=== PATIENT | female | born 1975 | race Caucasian/White ===

== ENCOUNTER 2023-09-22 02:53 | Inpatient (IN) | payer BC ==
[2023-09-22 04:27] LABS: #Eosinphils 0.1 thou/uL (0.0-0.7); #Monocytes 0.5 thou/uL (0.11-0.59); #Neutrophils 10.8 thou/uL (1.40-6.50); %Basophils 0.2 % (0.0-1.0); %Eosinophils 0.9 % (0.0-10.0); %Lymphocytes 4.4 % (21.0-51.0); %Monocytes 4.5 % (0.0-10.0); %Neutrophils 89.6 % (42.0-75.0); Hematocrit 38.2 % (36.0-47.0); Hemoglobin 12.9 g/dL (12.0-16.0); Mean Corpuscular HGB CONC 33.8 g/dL (32.0-36.0); Mean Corpuscular Hemoglobin 30.3 pg (27.0-31.0); Mean Corpuscular Volume 89.7 fl (78.0-98.0); Mean Platelet Volume 10.4 fL (7.4-10.4); Platelet Count 208 10x3/uL (130-400); RBC Distribution Width 11.4 % (11.5-14.5); Red Blood Cell (RBC) Count 4.26 mill/uL (4.20-5.40); White Blood Cell (WBC) Count 12.1 10x3/uL (4.8-10.8)
[2023-09-22 04:34] LABS: BHCG - Serum Negative (NEGATIVE); Pregs Control Background? CLEAR/WHITE (CLR/WHITE); Pregs Control Bar Appear? YES (CONTROL BAR)
[2023-09-22 04:51] LABS: Bacteria/HPF 2+ HPF (None Seen); Bilirubin 1+ (Negative); Blood, Urine Trace (Negative); CAUTI Indications for Culture Pelvic or flank pain; Clarity Turbid (Clear); Glucose, Urine (Dipstick) Normal (Negative); Ketone, Urine Negative (Negative); Leukocyte 500 Leu/uL (Negative); Mucous/LPF 1+ LPF (<2+); Nitrite 2+ (Negative); Protein, Urine (Dipstick) 30 mg/dL (Neg-Trace); Squamous Epithelial None Seen HPF (0-3); Urine Culture Reflex Yes Yes; WBC/HPF Greater than 50 HPF (0-3)
[2023-09-22 04:52] LABS: ALT (SGPT) 13 U/L (8-55); AST (SGOT) 15 U/L (5-34); Albumin 3.7 g/dL (3.5-5.0); Alkaline Phosphatase 42 U/L (40-110); Anion Gap 10 mmol/L (10-20); BUN (Urea Nitrogen) 10 mg/dL (7.0-18.7); Bilirubin, Total 0.8 mg/dL (0.2-1.2); Calc. Creatinine Clearance 0 mL/min (70-130); Calcium 8.3 mg/dL (7.8-10.44); Carbon Dioxide 25 mmol/L (22-29); Chloride 101 mmol/L (98-107); Estimated GFR 82; Glucose 90 mg/dL (70-105); Potassium 3.5 mmol/L (3.5-5.1); Protein, Total 5.7 g/dL (6.0-8.3); Sodium 132 mmol/L (136-145)
[2023-09-22 04:57] LABS: Troponin I Less than 0.010 ng/mL (< 0.028)
[2023-09-22] MEDS ORDERED: cefTRIAXone (ROCEPHIN) 2 GM VIAL ONE (05:36)
[2023-09-22] MEDS ORDERED: Sodium Chloride 0.9% 100 ML ONE (05:36)
[2023-09-22] MEDS ORDERED: Acetaminophen 500 MG TAB ONE (06:59)
[2023-09-22] MEDS ORDERED: Ondansetron PF 4 MG/2 ML Vial ONE (07:00)
[2023-09-22] MEDS ORDERED: Ketorolac Tromethamine 30 MG/ML VIAL ONE (07:00)
[2023-09-22] MEDS ORDERED: Acetaminophen 650 MG Suppository PR PRN (08:32)
[2023-09-22] MEDS ORDERED: Ondansetron PF 4 MG/2 ML Vial IVP PRN (08:32)
[2023-09-22] MEDS ORDERED: Ondansetron ODT 4 MG TAB PO PRN (08:32)
[2023-09-22 09:48] VITALS: BMI 24.7
[2023-09-22] MEDS ORDERED: Ketorolac Tromethamine 10 MG TAB PO SCH (10:30)
[2023-09-22] MEDS: Sodium Chloride 0.9% 1,000 ML IV SCH ×2 (11:13→18:42)
[2023-09-22] MEDS: Acetaminophen 325 MG TAB PO PRN (18:42)
[2023-09-22] MEDS ORDERED: Melatonin 3 MG TAB PO SCH (21:00)
[2023-09-22] MEDS: Hydroxychloroquine Sulfate 200 MG TAB PO SCH (21:00)
[2023-09-23] MEDS: Sodium Chloride 0.9% 1,000 ML IV SCH ×3 (01:42→17:52)
[2023-09-23] MEDS: Acetaminophen 325 MG TAB PO PRN ×2 (02:51→09:01)
[2023-09-23] MEDS ORDERED: Ketorolac Tromethamine 30 MG/ML VIAL IVP PRN (02:55)
[2023-09-23] MEDS: ALPRAZolam 0.25 MG TAB PO PRN (02:57)
[2023-09-23] MEDS ORDERED: Phenazopyridine HCl 100 MG TAB PO SCH (03:00)
[2023-09-23] MEDS: Levothyroxine Sodium 125 MCG TAB PO SCH (05:16)
[2023-09-23] MEDS: cefTRIAXone\\ROCEPHIN 1 GM in Sodium Chloride 0.9% 100 ML IVPB SCH (05:16)
[2023-09-23 06:36] LABS: #Eosinphils 0.3 thou/uL (0.0-0.7); #Monocytes 0.3 thou/uL (0.11-0.59); #Neutrophils 3.3 thou/uL (1.40-6.50); %Basophils 0.4 % (0.0-1.0); %Eosinophils 5.4 % (0.0-10.0); %Lymphocytes 24.2 % (21.0-51.0); %Monocytes 6.4 % (0.0-10.0); %Neutrophils 63.2 % (42.0-75.0); Hemoglobin 11.4 g/dL (12.0-16.0); Mean Corpuscular HGB CONC 33.5 g/dL (32.0-36.0); Mean Corpuscular Hemoglobin 30.8 pg (27.0-31.0); Mean Corpuscular Volume 91.9 fl (78.0-98.0); Mean Platelet Volume 10.3 fL (7.4-10.4); Platelet Count 213 10x3/uL (130-400); RBC Distribution Width 11.6 % (11.5-14.5); White Blood Cell (WBC) Count 5.2 10x3/uL (4.8-10.8)
[2023-09-23 06:56] LABS: Anion Gap 9 mmol/L (10-20); BUN (Urea Nitrogen) 6 mg/dL (7.0-18.7); Calc. Creatinine Clearance 110 mL/min (70-130); Calcium 7.9 mg/dL (7.8-10.44); Carbon Dioxide 25 mmol/L (22-29); Chloride 109 mmol/L (98-107); Estimated GFR 94; Glucose 79 mg/dL (70-105); Potassium 4.3 mmol/L (3.5-5.1); Sodium 139 mmol/L (136-145)
[2023-09-23] MEDS: Phenazopyridine HCl 100 MG TAB PO SCH ×3 (08:54→17:51)
[2023-09-23] MEDS: BuPROPion XL 150 MG ER.TAB PO SCH (08:54)
[2023-09-23] MEDS: Hydroxychloroquine Sulfate 200 MG TAB PO SCH ×2 (09:01→20:04)
[2023-09-23] MEDS ORDERED: Aspirin/APAP/Caffeine Tab (Excedrin Migraine) PO PRN (11:59)
[2023-09-23] MEDS ORDERED: Melatonin 3 MG TAB PO SCH (21:00)
[2023-09-24] MEDS: Sodium Chloride 0.9% 1,000 ML IV SCH ×2 (02:02→09:44)
[2023-09-24] MEDS: ALPRAZolam 0.25 MG TAB PO PRN (02:02)
[2023-09-24 02:04] VITALS: TEMP 98.1
[2023-09-24] MEDS: cefTRIAXone\\ROCEPHIN 1 GM in Sodium Chloride 0.9% 100 ML IVPB SCH (06:12)
[2023-09-24] MEDS: Levothyroxine Sodium 125 MCG TAB PO SCH (06:13)
[2023-09-24] MEDS ORDERED: Fish Oil 1,000 MG CAP PO SCH (09:00)
[2023-09-24] MEDS: BuPROPion XL 150 MG ER.TAB PO SCH (09:43)
[2023-09-24] MEDS: Phenazopyridine HCl 100 MG TAB PO SCH ×2 (09:43→13:42)
[2023-09-24] MEDS: Hydroxychloroquine Sulfate 200 MG TAB PO SCH (09:43)
[2023-09-24 11:59] VITALS: BP 113/72
== END 2023-09-24 14:50 | disposition home or self-care (01) | DRG 872 ==
LOC: ERS 02:53 → T4-B 07:32
PROVIDERS: ADMIT Internal Medicine; ATTEND Internal Medicine
DX: A41.9 Sepsis, unspecified organism (principal); D84.9 Immunodeficiency, unspecified; N30.00 Acute cystitis without hematuria; E03.9 Hypothyroidism, unspecified; F32.A Depression, unspecified; F41.9 Anxiety disorder, unspecified; M32.9 Systemic lupus erythematosus, unspecified; Z79.899 Other long term (current) drug therapy
CPT/HCPCS: 36415; 36416; 71045; 80048; 80053; 81001; 83605; 84484; 84703; 85025; 85379; 87040; 87086; 93005; 96365; 96375; J0696; J1885; J2405; J3490; J7050; Q0162